=== PATIENT | female | born 1950 | race Caucasian/White ===

== ENCOUNTER 2016-11-17 07:06 | Emergency (ER) | payer OTHER ==
--- NOTE | 2016-11-17 07:56 | ED ORDER SUMMARY ---
..... Patient: MIRA HATHAWAY OrderSheet [facility] VisitID: [id number] [place] [address] 66y, F Registration Date/Time: 11/17/2016 ORDER SHEET Weight: 108.4 kg (stated) Allergies: Latex, Neosporin GENERAL ORDERS: MEDICATION ORDERS: Alcaine Eye Drops (Solution 0.5 %) 2 drops (NOW, both eyes) (07:35 11/17/2016 LSullivan R.N. per protocol) (7:35 LSullivan R.N.) Oxycodone-APAP PO 5/325 mg (NOW) (07:59 11/17/2016 Armani YAO) (8:08 LWhalen R.N.) IV FLUIDS: ORDER SHEET NOTES: [Electronically signed by Lukasz Umanzor MD (20:50 11/20/2016)] [Electronically signed by Jaime Mims R.N. (09:54 11/22/2016)] [Electronically locked/signed by Jaime Mims R.N. (09:54 11/22/2016)]
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
--- NOTE | 2016-11-17 07:56 | ED ORDER SUMMARY ---
..... Patient: MIRA HATHAWAY OrderSheet [facility] VisitID: [id number] [place] [address] 66y, F Registration Date/Time: 11/17/2016 ORDER SHEET Weight: 108.4 kg (stated) Allergies: Latex, Neosporin GENERAL ORDERS: MEDICATION ORDERS: Alcaine Eye Drops (Solution 0.5 %) 2 drops (NOW, both eyes) (07:35 11/17/2016 LSullivan R.N. per protocol) (7:35 LSullivan R.N.) Oxycodone-APAP PO 5/325 mg (NOW) (07:59 11/17/2016 Armani YAO) (8:08 LWhalen R.N.) IV FLUIDS: ORDER SHEET NOTES: [Electronically signed by Lukasz Umanzor MD (20:50 11/20/2016)] [Electronically signed by Jaime Mims R.N. (09:54 11/22/2016)] [Electronically locked/signed by Jaime Mims R.N. (09:54 11/22/2016)]
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
--- NOTE | 2016-11-22 09:55 | ED MED RECONCILIATION SUMMARY ---
Patient: MIRA HATHAWAY Medication Reconciliation Report [facility] VisitID: [id number] [address] [place] [address] 66y, F Registration Date/Time: 11/17/2016 Weight: 108.4 kg Height/Length: 64 in. BMI: 41.1 ALLERGIES: Latex, Neosporin The patient's Home Medications are listed below: THE FOLLOWING MEDICATIONS NEED TO BE RECONCILED: Cozaar 25mg 2x daily KCL 10 meq daily Lasix 20 mg daily Metoprolol 50 mg 2x daily Xarelto 20mg daily The source(s) of the original Home Medication information: Not obtained. The following Medications were given to the patient in the Emergency Department: Alcaine [Eye Drops] Eye Drops 2 drop, administered: 11/17/2016 7:35:00 AM Oxycodone-APAP [PO] PO 1 tab, administered: 11/17/2016 8:03:00 AM The following Medications were prescribed to the patient: Sulamyd ophthalmic solution 10% : Instill 2 drops into affected eye every 2 hours while awake for 1 week. Dispense fifteen (15) mL. No refills. Substitution is permissible. -- Lukasz Umanzor MD Oxycodone/APAP 5 mg/325 mg: take 1 tablet orally every 6 hours as needed for pain. Dispense fifteen (15). No refills. -- Lukasz Umanzor MD
--- NOTE | 2016-11-22 09:55 | ED MAR SUMMARY ---
..... Medication Administration Record [facility] [address] [place] [address] Patient: MIRA HATHAWAY Visit ID: [id number] 66y, F Weight: 108.4 kg Height/Length: 64 in BMI: 41.1 ALLERGIES: Latex, Neosporin Given 07:35 11/17/2016 Susan Vincent RChaimNChaim Medication Administered: ALCAINE [EYE DROPS] (PROPARACAINE HCL), Dose: 2 drop Eye Drops. Medication Ordered: Alcaine Eye Drops (Solution 0.5 %) 2 drops (NOW, both eyes). Given 08:03 11/17/2016 Jaime Mims RChaimNChaim Medication Administered: OXYCODONE-APAP [PO] (OXYCODONE-ACETAMINOPHEN), Dose: 1 tab 5/325 mg Tablets PO. Medication Ordered: Oxycodone-APAP PO 5/325 mg (NOW).
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
--- NOTE | 2016-11-22 09:55 | ED MAR SUMMARY ---
..... Medication Administration Record [facility] [address] [place] [address] Patient: MIRA HATHAWAY Visit ID: [id number] 66y, F Weight: 108.4 kg Height/Length: 64 in BMI: 41.1 ALLERGIES: Latex, Neosporin Given 07:35 11/17/2016 Susan Vincent RChaimNChaim Medication Administered: ALCAINE [EYE DROPS] (PROPARACAINE HCL), Dose: 2 drop Eye Drops. Medication Ordered: Alcaine Eye Drops (Solution 0.5 %) 2 drops (NOW, both eyes). Given 08:03 11/17/2016 Jaime Mims RChaimNChaim Medication Administered: OXYCODONE-APAP [PO] (OXYCODONE-ACETAMINOPHEN), Dose: 1 tab 5/325 mg Tablets PO. Medication Ordered: Oxycodone-APAP PO 5/325 mg (NOW).
--- NOTE | 2016-11-22 09:55 | ED MED RECONCILIATION SUMMARY ---
Patient: MIRA HATHAWAY Medication Reconciliation Report [facility] VisitID: [id number] [address] [place] [address] 66y, F Registration Date/Time: 11/17/2016 Weight: 108.4 kg Height/Length: 64 in. BMI: 41.1 ALLERGIES: Latex, Neosporin The patient's Home Medications are listed below: THE FOLLOWING MEDICATIONS NEED TO BE RECONCILED: Cozaar 25mg 2x daily KCL 10 meq daily Lasix 20 mg daily Metoprolol 50 mg 2x daily Xarelto 20mg daily The source(s) of the original Home Medication information: Not obtained. The following Medications were given to the patient in the Emergency Department: Alcaine [Eye Drops] Eye Drops 2 drop, administered: 11/17/2016 7:35:00 AM Oxycodone-APAP [PO] PO 1 tab, administered: 11/17/2016 8:03:00 AM The following Medications were prescribed to the patient: Sulamyd ophthalmic solution 10% : Instill 2 drops into affected eye every 2 hours while awake for 1 week. Dispense fifteen (15) mL. No refills. Substitution is permissible. -- Lukasz Umanzor MD Oxycodone/APAP 5 mg/325 mg: take 1 tablet orally every 6 hours as needed for pain. Dispense fifteen (15). No refills. -- Lukasz Umanzor MD
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
== END 2016-11-17 08:09 | disposition home or self-care (01) ==
LOC: ED SRH 07:06
DX: T26.12XA Burn of cornea and conjunctival sac, left eye, initial encounter (principal); T26.11XA Burn of cornea and conjunctival sac, right eye, initial encounter; X10.2XXA Contact with fats and cooking oils, initial encounter; Y93.9 Activity, unspecified; Y99.9 Unspecified external cause status; Y92.9 Unspecified place or not applicable; I50.9 Heart failure, unspecified; I48.91 Unspecified atrial fibrillation